=== PATIENT | male | born 1970 | race Asian ===

== ENCOUNTER 2017-05-17 20:10 | Inpatient (IN) | payer MEDICAID ==
[~2017-05-17] VITALS: Ht 170.2 cm; Wt 109.3 kg
[2017-05-17 20:15] VITALS: Ht 170.2 cm; Wt 109.3 kg
[2017-05-17 21:10] LABS: BASOPHIL % 0.1 % (0-2); PLATELET COUNT 187 x10^3mcL (130-400); RED CELL DISTRIBUTION WIDTH 12.5 % (11.5-14.5)
[2017-05-17 21:17] LABS: microscopic required? YES; urine erythrocyte 2+ (NEGATIVE)
[2017-05-17 21:29] LABS: BILIRUBIN TOTAL 0.82 mg/dL (0.20-1.00); CARBON DIOXIDE 19.9 mmol/L (21-32); CREATININE SERUM 2.4 mg/dL (0.7-1.3); POTASSIUM SERUM 4.3 mmol/L (3.5-5.1); TOTAL PROTEIN, SERUM 7.7 g/dL (6.4-8.2)
[2017-05-17 22:04] LABS: ALBUMIN 3.3 g/dL (3.4-5.0)
[2017-05-17 22:06] LABS: GLUCOSE SERUM 713.56 mg/dL (74-106)
[2017-05-17 22:57] LABS: CALCIUM 8.7 mg/dL (8.5-10.1); CARBON DIOXIDE 23.9 mmol/L (21-32); CREATININE SERUM 2.3 mg/dL (0.7-1.3)
[2017-05-18 00:30] VITALS: BP 129/80
[2017-05-18 02:38] LABS: FREE T4 0.96 ng/dL (0.76-1.46); FREE THYROXINE INDEX 1.8 ug/dL (1.4-4.5)
[2017-05-18 02:42] LABS: AMYLASE 33 U/L (25-115); LIPASE 127 IU/L (73-393); MAGNESIUM 1.9 mg/dL (1.8-2.4); PHOSPHOROUS 5.6 mg/dL (2.5-4.9)
[2017-05-18 02:43] LABS: CHOLESTEROL 265 mg/dL (<200); HDL CHOLESTEROL 24 mg/dL (40-60); TRIGLYCERIDES 1545 mg/dL (<150)
[2017-05-18 02:50] LABS: T3 TOTAL 0.55 ng/mL
[2017-05-18 03:27] VITALS: BP 112/70
[2017-05-18 05:41] LABS: CALCIUM 8.6 mg/dL (8.5-10.1); CARBON DIOXIDE 26.5 mmol/L (21-32); CREATININE SERUM 1.8 mg/dL (0.7-1.3); MAGNESIUM 1.9 mg/dL (1.8-2.4); PHOSPHOROUS 3.5 mg/dL (2.5-4.9); POTASSIUM SERUM 3.7 mmol/L (3.5-5.1)
[2017-05-18 07:45] VITALS: BP 116/65
[2017-05-18 08:46] LABS: CALCIUM 8.4 mg/dL (8.5-10.1); CARBON DIOXIDE 24.7 mmol/L (21-32); CREATININE SERUM 1.6 mg/dL (0.7-1.3); MAGNESIUM 1.8 mg/dL (1.8-2.4); PHOSPHOROUS 3.1 mg/dL (2.5-4.9); POTASSIUM SERUM 3.4 mmol/L (3.5-5.1)
[2017-05-18 11:44] VITALS: BP 109/61
[2017-05-18 13:10] LABS: AMPHETAMINE QUAL UR NONE DETECTED (NEG <=1000)
[2017-05-18 16:06] VITALS: BP 106/72
[2017-05-18 20:22] VITALS: BP 117/78
[2017-05-19 05:00] VITALS: BP 105/63
[2017-05-19 06:15] LABS: CALCIUM 8.1 mg/dL (8.5-10.1); CARBON DIOXIDE 22.5 mmol/L (21-32); CREATININE SERUM 1.5 mg/dL (0.7-1.3); MAGNESIUM 1.9 mg/dL (1.8-2.4); PHOSPHOROUS 2.5 mg/dL (2.5-4.9); POTASSIUM SERUM 4.1 mmol/L (3.5-5.1)
[2017-05-19 06:47] LABS: BASOPHIL % 0.6 % (0-2); PLATELET COUNT 145 x10^3mcL (130-400); RED CELL DISTRIBUTION WIDTH 12.6 % (11.5-14.5)
[2017-05-19 08:29] VITALS: BP 107/69
[2017-05-19 12:13] VITALS: BP 117/73
[2017-05-19] MEDS ORDERED: METFORMIN HCL1000 MG PO (14:03)
[2017-05-19 15:56] VITALS: BP 113/75
[2017-05-19 20:28] VITALS: BP 123/80
[2017-05-20 04:58] VITALS: BP 120/78
[2017-05-20 05:50] LABS: BASOPHIL % 0.6 % (0-2); RED CELL DISTRIBUTION WIDTH 12.4 % (11.5-14.5)
[2017-05-20 06:14] LABS: PLATELET COUNT 129 x10^3mcL (130-400)
[2017-05-20 06:21] LABS: CALCIUM 8.1 mg/dL (8.5-10.1); CARBON DIOXIDE 26.2 mmol/L (21-32); CREATININE SERUM 1.6 mg/dL (0.7-1.3); PHOSPHOROUS 2.2 mg/dL (2.5-4.9); POTASSIUM SERUM 4.2 mmol/L (3.5-5.1)
[2017-05-20 09:00] VITALS: BP 130/76
[2017-05-20] MEDS ORDERED: GLU5 PO (11:35)
[2017-05-20] MEDS ORDERED: LIPI20 PO (11:36)
[2017-05-20] MEDS ORDERED: LEVEMIR100 U/M1 SC (11:38)
[2017-05-20 12:26] VITALS: BP 130/76
[2017-05-20 13:08] VITALS: BP 116/74
== END 2017-05-20 13:42 | disposition home or self-care (01) | DRG 420 ==
LOC: ED 20:10 → DU 23:25 → IC 23:25 → DU 05-18 18:37
PROVIDERS: Emergency Medicine; Family Medicine
DX: E13.11 Other specified diabetes mellitus with ketoacidosis with coma (principal); N17.0 Acute kidney failure with tubular necrosis; E87.1 Hypo-osmolality and hyponatremia; E66.9 Obesity, unspecified; Z68.38 Body mass index [BMI] 38.0-38.9, adult; E78.1 Pure hyperglyceridemia; N39.0 Urinary tract infection, site not specified; E83.39 Other disorders of phosphorus metabolism; E44.0 Moderate protein-calorie malnutrition; F17.200 Nicotine dependence, unspecified, uncomplicated; Z82.3 Family history of stroke
CPT/HCPCS: 36600; 83880; 84439; J1815; J2543; J3490; J7030; Q0092